=== PATIENT | male | born 1955 | race Caucasian/White ===

== ENCOUNTER → 2023-12-12 09:25 | Day surgery (SDC) | payer MEDICARE, SELFPAY ==
[2023-12-12 09:49] VITALS: BMI 45.4
--- NOTE | 2023-12-12 17:31 | ITS.CL.CARDI ---
Eligibility And Occupancy Interviewer - Cardioversion
Cardioversion
Procedure Report:
Date of Procedure: 12/12/2023
Procedure: Cardioversion
Indication: Symptomatic atrial fibrillation
Performing Physician: Tena Harris DO [facility]
Technique: The patient was brought to the holding area. Signed informed consent was obtained. A time out was called and performed. The patient was anesthetized by the anesthesia service. Anticoagulation status was reviewed and appropriate. R2 pads
were placed anteriorly and posteriorly. A 200 J synchronized biphasic shock, followed by 300J x1 and 360J x 1 attempts with water bottle assist failed to terminate atrial fibrillation. There were no complications.
Conclusion: Unsuccessful cardioversion from atrial fibrillation
Recommendation: Routine post cardioversion care. Continue assisted anticoagulation. Follow-up with Dr. Valderrama
== END ==
LOC: CATH 09:25
PROVIDERS: ATTENDING PHYSICIAN Internal Medicine Cardiovascular Disease; FAMILY PHYSICIAN Family Medicine; OTHER PHYSICIAN Internal Medicine Cardiovascular Disease
DX: I48.19 Other persistent atrial fibrillation (principal); I10 Essential (primary) hypertension; E78.00 Pure hypercholesterolemia, unspecified; G47.33 Obstructive sleep apnea (adult) (pediatric); K21.9 Gastro-esophageal reflux disease without esophagitis; E66.01 Morbid (severe) obesity due to excess calories; Z68.42 Body mass index [BMI] 45.0-49.9, adult; Z79.01 Long term (current) use of anticoagulants
CPT/HCPCS: 92960; 93005

== ENCOUNTER 2024-01-22 09:17 | Day surgery (SDC) | payer MEDICARE, SELFPAY ==
--- NOTE | 2024-01-22 10:52 | ITS.CL.CARDI ---
Spa Host - Cardioversion
Cardioversion
Procedure Report:
Date of Procedure:
Procedure: Cardioversion
Indication: Symptomatic atrial fibrillation
Performing Physician: Max Lira MD
Technique: The patient was brought to the holding area. Signed informed consent was obtained. A time out was called and performed. The patient was anesthetized by the anesthesia service. Anticoagulation status was reviewed and appropriate. R2 pads
were placed anteriorly and posteriorly. A 200 J synchronized biphasic shock failed and then a 360J synchronized biphasic shock restored normal sinus rhythm without significant bradycardia. There were no complications.
Conclusion: Uncomplicated cardioversion from atrial fibrillation to sinus rhythm.
Recommendation: Routine post cardioversion care. Continue half-way anticoagulation.
== END 2024-01-22 11:32 | disposition home or self-care (01) ==
LOC: CATH 09:17
PROVIDERS: ATTENDING PHYSICIAN Internal Medicine Cardiovascular Disease; FAMILY PHYSICIAN Radiology Vascular & Interventional Radiology; OTHER PHYSICIAN Internal Medicine Cardiovascular Disease
DX: I48.19 Other persistent atrial fibrillation (principal); I10 Essential (primary) hypertension; E78.00 Pure hypercholesterolemia, unspecified; G47.30 Sleep apnea, unspecified; Z79.01 Long term (current) use of anticoagulants
CPT/HCPCS: 92960; 93005

== ENCOUNTER 2024-08-30 07:54 | Day surgery (SDC) | payer MEDICARE, SELFPAY ==
[2024-08-23 09:45] VITALS: BMI 42.5
--- NOTE | 2024-08-23 10:07 | HPS.HSE ---
Family Physician
-
Family Physician: NO INTERVIEW UNKNOWN
Chief Complaint
-
Persistent atrial fibrillation.
History of Present Illness
The patient is a 69-year-old morbidly obese, male presenting today for persistent atrial fibrillation. He reports a wide variety of symptoms in the past associated with his atrial fibrillation. These symptoms include chest tightness,
shortness of breath most notably with exertion, fatigue, and dizziness. The patient previously underwent pulmonary vein isolation in 2011 and June 2023 secondary to this diagnosis. Unfortunately, his atrial fibrillation returned in November 2023
after his most recent ablation. He underwent a cardioversion at that time and was started on Amiodarone. He had a repeat cardioversion in January 2024. He continues to take Metoprolol Succinate as well for pharmacological therapy. He has been compliant
with Eliquis for oral anticoagulation. He is interested in pursuing a repeat pulmonary vein isolation for further arrhythmia management in the hopes of discontinuing Amiodarone in the near future. He does express concerns with usp toxicities.
He denies any current complaints today such as chest pain and shortness of breath at rest, palpitations, nausea, vomiting, diarrhea, cough, sore throat, or fever.
Medical History
Past Medical History
Past Medical History: Reports Other
Additional Past Medical History:
1. Persistent atrial fibrillation, status post pulmonary vein isolation, 2011 and 06/2023, and cardioversion 11/2023 and 01/2024; pharmacological therapy with Metoprolol Succinate and Amiodarone, oral anticoagulation with Eliquis.
2. Hypertension.
3. Hypercholesterolemia.
4. Abnormal EKG; nuclear stress test 2020 stable.
5. Tachycardia-induced cardiomyopathy.
6. Venous insufficiency.
7. Obstructive sleep apnea, compliant with CPAP.
8. Mild renal insufficiency per pre-operative labs.
9. GERD.
10. Colon polyps.
11. Diverticulosis.
12. Left renal cyst.
13. Hemorrhoids.
14. Multilevel degenerative disc disease.
15. Sciatica.
16. Osteoarthritis.
17. Bladder calculus, status post cystoscopy and cystolitholapaxy.
18. BPH with LUTS.
19. Basal cell carcinoma, status post excision.
20. Chronic, mild hypomagnesemia.
21. Morbid obesity, BMI 42.5.
Past Surgical History: Reports Other
Additional Past Surgical History:
1. Pulmonary vein isolation x2.
2. Cardioversion x2.
3. Transesophageal echocardiogram.
4. Cystoscopy and cystolitholapaxy.
5. Pyloric stenosis repair in infancy.
6. Tonsillectomy and uvulopalatoplasty.
7. Colonoscopy.
Social History
Tobacco: Non-smoker
Alcohol: Other (Social)
Living: With Family (in a 3 story home. )
Family History
Family History: Not pertinent
Allergies / Home Medications
Allergy/Medication List:
Home medications:
1. Apixaban 5 mg p.o. twice a day.
2. Benazepril 20 mg p.o. twice a day.
3. Diltiazem HCL 120 mg p.o. twice a day.
4. Cholecalciferol 25 mcg p.o. daily.
5. Metoprolol Succinate 150 mg p.o. twice a day.
6. Naproxen Sodium 220 mg p.o. twice a day as needed.
7. Omeprazole 20 mg p.o. at bedtime.
8. Rosuvastatin 20 mg p.o. at bedtime.
9. Spironolactone 25 mg p.o. twice a day.
10. Tamsulosin 0.4 mg p.o. at bedtime.
11. Terazosin 1 mg p.o. at bedtime.
12. Amiodarone 200 mg p.o. at bedtime.
Allergies: No known allergies.
Review of Systems
-
A 12 point ROS was completed and negative except as noted: Yes
Physical Exam
Vital Signs
Blood pressure 126/71. Heart rate 61. Respirations 18. Pulse ox 93%, increasing to 96% with encouraged deep breathing.
Height 6 feet, 1 inch. Weight 146.1 kg. BMI 42.5.
Physical Exam
General: Well Developed, Well Nourished and No Apparent Distress
HEENT: NormoCephalic, Moist mucous membranes, Atraumatic and PERRLA
Respiratory: Clear
Cardiac: Regular Rhythm
GI: Soft, Non Tender, Non Distended and Other (Morbidly obese. )
Musculoskeletal: Normal Gait & Station
Skin: Warm and Dry
Neuro: AO x 3 and Nonfocal/grossly intact
Laboratory Results
-
DIAGNOSTIC STUDIES as of 08/23/2024: White blood cell count 6.6. Hemoglobin 15.9. Platelet count 168,000. PT 15.3. INR 1.18. Sodium 140. Potassium 4.2. BUN 23. Creatinine 1.5. Glucose 116. Calcium 9.3. Magnesium 1.4. AST 23. ALT 19. Albumin 4.1.
Type and screen B positive.
EKG 08/23/2024: Sinus rhythm with first degree AV block. Low voltage QRS. Inferior infarct, cited on or before 09/01/2010. Cannot rule out anterior infarct, cited on or before 09/03/2010. Compared to the prior EKG of 01/22/2024, no significant
change was found.
Transesophageal echocardiogram 07/11/2023: Left atrial appendage is normal in size. Spontaneous echo contrast seen in the left atrial appendage. No thrombus detected in the left atrial appendage. Peak velocities within the left atrial appendage are
40cm/sec.
Chest CT 06/30/2023: Short segment common vestibule for the left superior and inferior pulmonary veins, fairly commonly seen and considered normal variant. No evidence of left atrial thrombus.
Nuclear stress test 03/05/2021: Fixed defect in the basal inferolateral and basal inferior segments consistent with soft tissue attenuation. Ejection fraction is 57%. This is a moderate risk study due to the pharmacological agent use. Compared with
the prior study performed on 11/19/2010, there is no significant change.
Impression/Plan
-
IMPRESSION/PLAN:
1. Persistent atrial fibrillation: The patient is in need of pulmonary vein isolation with Dr. James King on 08/30/2024. The benefits and risks of the procedure have been explained to the patient. The patient understands these risks and
wishes to proceed. He will not be required to undergo a pre-procedural transesophageal echocardiogram as he has been compliant with his home oral anticoagulation. He was made aware to continue his Eliquis uninterrupted prior to his procedure. He
will take no medications the morning of his ablation.
[2024-08-30] VITALS (11 sets, daily range): BP systolic 106–131; BP diastolic 69–86; BMI 40.9
[2024-08-30] MEDS: TYLENOL 1000 MG PO (08:55)
[2024-08-30 11:45] LABS: ACT-LR - POC 393 Seconds (116-155)
[2024-08-30 12:10] LABS: ACT-LR - POC 351 Seconds (116-155)
--- NOTE | 2024-08-30 12:33 | ITS.CL.ABL ---
Wood Drilling Machine Operator - Ablation
Ablation
Procedure Report:
ELECTROPHYSIOLOGIC STUDY AND POSSIBLE ABLATION
DATE: August 30, 2024
Primary Care Provider: Dr Vasyl Vale
Primary Postbed Stitcher: Dr. Kenneth Salgado
INDICATION:
Symptomatic Atrial Fibrillation.
Persistent despite prior PVI in 2011 and 2022. symptomatic with fatigue. Increasing burden of atrial fibrillation recently. Prior history of atrial fibrillation related cardiomyopathy with LVEF having normalized with latter day and maintenance of
sinus rhythm. Most recent echocardiogram showed LVEF of 45%
HAS-BLED:
Age
Abnormal Renal Function
CHADSVASc: 3
CHF, NYHA Class 2, LVEF 45%
HTN
Age
PRESENTING RHYTHM: SR
HISTORY: See H and P.
Symptomatic AF, poorly controlled with attempted medical therapy.
ANTICOAGULATION: Apixaban 5 mg twice daily
'TIME-OUT': called and confirmed.
SEDATION/ANESTHESIA: provided via the anesthesia department using general anesthesia.
PROCEDURE:
Ultrasound Guidance with real-time visualization of needle insertion and vessel patency performed by il for femoral venous Vascular Access. Images were taken and saved for the patient's permanent record. Imaging findings typical femoral venous
anatomy. Direct visualization of needle puncture into the femoral vein was observed and recorded.
A decapolar CS catheter was placed within the CS for mapping and pacing.
The intracardiac ultrasound catheter was positioned in the RA for continuous intracardiac ultrasound imaging.
Heparin bolus and infusion to target ACT at 300 -350 seconds was administered. Transseptal puncture was performed. This entailed advancing a sheath with dilator into the superior vena cava and withdrawing both (monitoring intracardiac ultrasound,
fluoroscopy and tip pressure) with the tip oriented toward the atrial septum. The fossa ovalis was engaged (indicated by sudden displacement of the sheath tip as well as tenting of the fossa seen on intracardiac ultrasound).
AcQCross transseptal system was used. Left atrial catheter position was confirmed by echocardiographic imaging, pressure monitoring (LA mean pressure 10 mm Hg) and fluoroscopy. The sheath was advanced over the dilator and positioned in the left
atrium.
The multipolar mapping catheter was initially positioned through the transseptal sheath for high density mapping.
Geometry and voltage mapping was performed using the Youneeq multipolar grid catheter. Ensite-X was utilized for three-dimensional electroanatomical mapping.
A 3-D map was created using Ensite-X in Voxel mode. A 3-D reconstructed CT image was compared to the 3-D Navex map to assist in anatomic evaluation, mapping and ablation.
The I Gotchu Pulse Select PFA catheter and system was used for cardiac ablation. Catheter positioning was guided and confirmed using both I.C.E. and fluoroscopy.
Mapping finds complete isolation of the left superior and left inferior pulmonary veins with entrance and exit block. There is reconnection at the right pulmonary veins along the anterior zonia.
Ablation strategy included reisolation of the ostium of the right superior and right inferior pulmonary vein as well as ablation at the zonia between the right superior and inferior pulmonary veins. Once this was completed additional ablation
lesion set was performed. This consisted of left atrial posterior wall ablation. Once ablation lesion sets were completed, the multipolar grid catheter was substituted for the ablation catheter and the left atrium was remapped. This showed
entrance and exit block at each of the pulmonary vein ostia (LSPV, LIPV, RSPV, RIPV). Mapping of the posterior wall of the left atrium showed that there is still posterior wall electrical connection particular at the floor of the left atrium. The
ablation catheter was substituted for the mapping catheter and additional ablations were delivered to the posterior wall of the left atrium to complete left atrial posterior wall electrical isolation. The mapping catheter was then substituted once
again for the ablation catheter and mapping demonstrated both entrance and exit block of the posterior wall of the left atrium.
At the conclusion of ablation there is entrance and exit block at each of the pulmonary vein ostia and entrance and exit block at the posterior wall of the left atrium.
Programmed electrical stimulation was performed including burst atrial pacing down to atrial ERP (360 ms) and no atrial arrhythmias could be induced.
I.C.E. :
Pre-Ablation Post-Ablation
LVEF: 45-50 % 45-50 %
WMA: None none
Pericardial effusion: Trace posterior trace posterior
COMPLICATIONS:
None
SUMMARY:
- Mapping and ablation to isolate the PVs
- Additional AF ablation set after PVI (left atrial posterior wall ablation).
- 3-D Electroanatomical Mapping
- Intracardiac Ultrasound
- Ultrasound guidance for vascular access
Post ablation, I discussed today's findings and results with the patient's , Keila.
RECOMMENDATIONS:
- Observe in monitored bed.
- Maintain oral anticoagulation.
- Reduce Toprol-XL from 150 mg twice daily to 100 mg twice daily and maintain current dose of Cardizem as we assess rhythm control
- Office visit with retail security professional in 2 to 4 weeks then office visit with Dr Salgado in 4 months.
- Continue cardiovascular care with Dr Carlos Salgado
Copy to:
Dr Vasyl Vale
Dr. Kenneth Salgado
[2024-08-30 13:16] LABS: ACT-LR - POC > 397 Seconds (116-155)
--- NOTE | 2024-08-30 16:49 | W.PN.UPDATE ---
Update Note
Progress Note Update
Pt seen post PFA. Right groin without ht/bleeding, non tender. OOB ambulating, urinating without difficulty. Post EKG SB 50s, no acute changes. Resume eliquis tonight. Will decrease metoprolol xl to 100mg BID with plans to taper off as pt tolerates-
will eval at followup. Continue other meds as before. Followup at [facility] as scheduled. Home today if groin site/tele remain stable.
== END 2024-08-30 17:05 | disposition home or self-care (01) ==
LOC: CATH 07:54
PROVIDERS: ATTENDING PHYSICIAN Internal Medicine Cardiovascular Disease; FAMILY PHYSICIAN Family Medicine; OTHER PHYSICIAN Internal Medicine Cardiovascular Disease
DX: I48.19 Other persistent atrial fibrillation (principal); I11.0 Hypertensive heart disease with heart failure; I50.9 Heart failure, unspecified; I42.9 Cardiomyopathy, unspecified; R07.89 Other chest pain; R06.02 Shortness of breath; Z68.41 Body mass index [BMI] 40.0-44.9, adult; E66.01 Morbid (severe) obesity due to excess calories; E78.00 Pure hypercholesterolemia, unspecified; I87.2 Venous insufficiency (chronic) (peripheral); K21.9 Gastro-esophageal reflux disease without esophagitis; K57.90 Diverticulosis of intestine, part unspecified, without perforation or abscess without bleeding; N28.1 Cyst of kidney, acquired; Z87.19 Personal history of other diseases of the digestive system; M54.30 Sciatica, unspecified side; M19.90 Unspecified osteoarthritis, unspecified site; N21.0 Calculus in bladder; N40.1 Benign prostatic hyperplasia with lower urinary tract symptoms; E83.42 Hypomagnesemia; R94.31 Abnormal electrocardiogram [ECG] [EKG]; Z79.01 Long term (current) use of anticoagulants; Z79.899 Other long term (current) drug therapy; N28.9 Disorder of kidney and ureter, unspecified; Z85.828 Personal history of other malignant neoplasm of skin; Z86.0100 Personal history of colon polyps, unspecified
CPT/HCPCS: C1732; C1894; C1769; C1730; 85347; 93005; 93656; 93657; C1733; C1766; C1892

== ENCOUNTER 2025-02-04 12:41 | Emergency (ER) | payer MEDICARE, SELFPAY ==
[2025-02-04 12:44] VITALS: BP 124/80
--- NOTE | 2025-02-04 13:40 | ED.GENMED ---
History of Present Illness
General
Chief Complaint: Dizziness
Source: patient
Exam Limitations: none
Time Seen by Provider: 02/04/25 13:15
History of Present Illness
History of Present Illness:
69-year-old male with history of A-fib presents with 2 weeks worth of lightheadedness. He was seen by the family doctor today because of the lightheadedness was sent here because his blood pressure was low in the office. There is no chest pain.
He notes an ongoing cough. He denies leg swelling. He has a history of cardiac ablation. No fevers. No other complaints at this time
Past History
Past History
ED Past Medical History: Arrthythmia (a fib), GERD, HTN, Hypercholesterolemia, Other (Afib takes), Other (Terzon for urine symptoms) and Other (PNA 3 yrs ago, hospitalized); Negative NM or Hypothyroidism
ED Past Surgical History: Other (Repair of pyloric stenosis as an infant)
Social History
Tobacco: Non-smoker
Alcohol: None
Personal:
Living: with family
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
Family History
Family History: Hypertension and CAD; Negative Diabetes, Asthma or Cancer
Phy Exam
Physical Exam
Physical Exam:
General: Well-appearing male no acute respiratory distress HEENT: Normocephalic atraumatic
Heart: Regular rate and rhythm
Lungs: Clear no wheeze
Abdomen is soft nontender nondistended
Extremities: No cyanosis or edema
Course
Orders/Labs/Results
Orders:
Orders
02/04/25 13:31
Orthostatic VS- Treatment ONCE
02/04/25 13:32
CR Chest - 2 Views Urgent
Comment:
Reason For Exam: cough
02/04/25 13:33
Electrocardiogram (*1) Urgent
Reason for Study: Vertigo / Dizzy
EKG- Treatment ONCE
02/04/25 13:52
Complete Blood Count/With Diff Urgent
Comprehensive Metabolic Panel Urgent
02/04/25 15:16
0.9% Sodium Chloride 1000 ml [Nss] 1,000 ml IV BOLUS
Abnormal Lab Results
02/04/25
13:52
WBC 4.3 L 10^3/uL
(4.8-10.8)
MCH 32.3 H pg
(27.0-31.0)
Absolute Lymphs (auto) 0.9 L 10^3/uL
(1.2-3.4)
Lymphocytes % 19.9 L %
(20.5-51.1)
Monocytes % 11.1 H %
(1.7-9.3)
Chloride 113 H mmol/L
(98-107)
Carbon Dioxide 21 L mmol/L
(22-30)
BUN 28 H mg/dl
(9-20)
Creatinine 1.8 H mg/dL
(0.7-1.3)
Glucose 118 H mg/dl
(70-99)
02/04/25 13:52
02/04/25 13:52
Vital Signs
Initial and Last Documented VS:
Initial Vital Signs
Temp Pulse Resp BP Pulse Ox
97.9 F 64 15 124/80 93
02/04/25 12:44 02/04/25 12:44 02/04/25 12:44 02/04/25 12:44 02/04/25 12:44
Last Documented Vital Signs
Temp Pulse Resp BP Pulse Ox
97.9 F 58 18 150/92 97
02/04/25 12:44 02/04/25 18:10 02/04/25 12:44 02/04/25 17:00 02/04/25 18:10
MDM/Problems Addressed
Differential Diagnosis Includes:
Patient presents with lightheadedness. Also notes ongoing cough. Consider hypotension versus arrhythmia versus electrolyte abnormality or anemia or pneumonia
Chest x-ray pending. Orthostatic vital signs pending will check labs
*Pulse Oximetry
SaO2: 93
Oxygen Mode of Delivery: Room air
*Critical Care Note
Total Time (30-74mins, 75-104mins- exclusive of procedures): Not Applicable
Update Note
Update Note:
Labs show subtle acute kidney injury with a creatinine 1.8. did look dry on exam. He was given a liter of fluid. Orthostatic vital signs are stable. There was 1 value of blood pressure that was checked which was low but blood pressure checked
immediately after this return to normal blood pressure reading. No evidence of sustained hypotension here. Chest x-ray clear. No indication for admission no arrhythmias on monitor. Stable for discharge
ED Attending Note
-
Portions of this chart may have been created with voice recognition software.� Occasional wrong word or��sound alike� substitutions may have occurred due to the inherent limitations of voice recognition software.
Discharge Plan
Departure
Patient Disposition: Home (Routine Discharge)
Date of Disposition: 02/04/25
Time of Disposition: 18:19
Patient with high blood pressure during this ER visit?: No
Discharge Problem:
Lightheadedness
Instructions: Dizziness, Nonvertigo, (DC)
Prescriptions:
No Action
terazosin 1 MG capsule
1 mg PO HS
rosuvastatin 20 MG tablet
20 mg PO HS
benazepril 20 MG tablet
20 mg PO BID
Eliquis 5 MG tablet
5 mg PO BID
spironolactone 25 mg Tablet
25 mg PO BID
tamsulosin 0.4 mg Capsule
0.4 mg PO HS
amiodarone 200 mg Tablet
200 mg PO HS
diltiazem HCl [Cartia XT] 120 MG capsule,extended release 24hr
120 mg PO DAILY
omeprazole 20 mg Tablet,Delayed Release (Dr/Ec)
20 mg PO HS
naproxen sodium [Aleve] 220 mg Capsule
220 mg PO BID PRN (Reason: back pain )
cholecalciferol (vitamin D3) [Vitamin D3] 25 mcg (1,000 unit) Tablet
25 mcg PO DAILY
metoprolol succinate 50 MG tablet extended release 24 hr
100 mg PO BID Qty: 0 0RF
Referrals:
Vasyl Chaudhry MD [Family Provider, Family Practice]
Activity Restrictions/Additional Instructions:
Stay hydrated. Return here if worse otherwise follow-up with your doctor
Interventions
Interventions:
*Risk Screen - Suicide Last Done: 02/04/25 13:56
*General Assessment Last Done: 02/04/25 12:44
*Neglect/Abuse Screening Last Done: 02/04/25 13:56
*ED- Fall Risk Assessment Last Done: 02/04/25 13:56
*ED COVID-19 Vaccine History Last Done: 02/04/25 13:56
ED- Neurological Assessment Last Done: 02/04/25 15:00
Discharge Date and Time
Print Language: [id number]
[2025-02-04 13:43] VITALS: BMI 40.2
[2025-02-04 14:14] LABS: % Basophils 0.2 % (0-2); % Eosinophils 0.9 % (0-6); % Immature Granulocytes 0.5 % (0-0.5); % Lymphocytes 19.9 % (20.5-51.1); % Monocytes 11.1 % (1.7-9.3); % Neutrophils 67.4 % (42.2-75.2); Absolute Lymphocytes 0.9 10^3/uL (1.2-3.4); Absolute Monocytes 0.5 10^3/uL (0.1-0.6); Absolute Neutrophils 2.9 10^3/uL (1.4-6.5); Hematocrit 44.6 % (39.0-52.0); Hemoglobin 15.4 g/dL (13.0-18.0); Mean Corp Hgb Conc. 34.5 g/dL (33.0-37.0); Mean Corpuscular Hgb 32.3 pg (27.0-31.0); Mean Corpuscular Volume 93.5 fL (80.0-94.0); Mean Platelet Volume 9.1 fL (7.4-10.4); Nucleated Red Blood Cells % 0 % (-); Platelet Count 142 10^3/uL (130-400); Red Blood Cell Count 4.77 10^6/uL (4.70-6.10); Red Cell Dist. Width 12.4 % (11.5-14.5); White Blood Cell Count 4.3 10^3/uL (4.8-10.8)
[2025-02-04 14:28] LABS: ALT (SGPT) 24 U/L (0-50); AST (SGOT) 28 U/L (17-59); Alkaline Phosphatase 71 U/L (38-126); Blood Urea Nitrogen 28 mg/dl (9-20); Calcium 9.1 mg/dl (8.4-10.2); Carbon Dioxide 21 mmol/L (22-30); Chloride 113 mmol/L (98-107); Estimated Creatinine Clearance 60 ml/min; Glucose 118 mg/dl (70-99); Potassium 4.3 mmol/L (3.5-5.1); Sodium 141 mmol/L (135-145); Total Bilirubin 0.4 mg/dl (0.2-1.3); Total Protein 6.6 g/dl (6.3-8.2); eGFR 40.75
[2025-02-04 14:55] VITALS: BP 115/78; BP 116/73; BP 117/77; PULSE 55; PULSE 57; PULSE 61
[2025-02-04] MEDS: NSS 1000 IV (15:26)
[2025-02-04 16:01] VITALS: BP 144/87
[2025-02-04 17:00] VITALS: BP 150/92
[2025-02-04 18:35] VITALS: BP 142/94
== END 2025-02-04 18:37 | disposition home or self-care (01) ==
LOC: EMR 12:41
PROVIDERS: Physician Assistant; EMERGENCY PHYSICIAN Student in an Organized Health Care Education/Training Program; FAMILY PHYSICIAN Family Medicine
DX: R42 Dizziness and giddiness (principal); I48.91 Unspecified atrial fibrillation; E78.00 Pure hypercholesterolemia, unspecified; I10 Essential (primary) hypertension; Z82.49 Family history of ischemic heart disease and other diseases of the circulatory system; K21.9 Gastro-esophageal reflux disease without esophagitis
CPT/HCPCS: 99283; 96360; 71046; 80053; 85025; 93005